=== PATIENT | male | born 1960 | race Caucasian/White ===

== ENCOUNTER 2020-03-10 12:36 | Day surgery (SDC) | payer BC ==
[2020-03-10] VITALS (8 sets, daily range): BP systolic 95–128; BP diastolic 56–82
[~2020-03-10] VITALS: Ht 172.7 cm; Wt 92.2 kg
[2020-03-10] MEDS ORDERED: LISI10TA4 PO (13:30)
[2020-03-10] MEDS ORDERED: SIMV-45 PO (13:30)
[2020-03-10] MEDS ORDERED: CLOP75TA34 PO (13:30)
[2020-03-10] MEDS ORDERED: CARV-50 PO (13:30)
[2020-03-10] MEDS ORDERED: METF-950 PO (13:30)
[2020-03-10] MEDS ORDERED: HYDR200T84 PO (13:30)
[2020-03-10] MEDS ORDERED: OMEG1CAP13 PO (13:32)
[2020-03-10 13:42] LABS: BASOPHILS # (AUTO) 0.1 X10'3 (0-0.2); EOSINOPHILS # (AUTO) 0.1 X10'3 (0-0.9); EOSINOPHILS % (AUTO) 1.3 % (0-6); HEMATOCRIT 45.6 % (42.0-52.0); HEMOGLOBIN 15.5 g/dl (14.0-17.9); LYMPHOCYTES # (AUTO) 1.7 X10'3 (1.1-4.8); MEAN CORPUSCULAR HEMOGLOBIN 30.7 PG (27.0-31.0); MEAN CORPUSCULAR VOLUME 90.1 FL (78-98); MONOCYTES # (AUTO) 0.5 X10'3 (0-0.9); MONOCYTES % (AUTO) 7.7 % (2-12); NEUTROPHILS # (AUTO) 4.3 X10'3 (1.8-7.7); PLATELET COUNT 181 X10'3 (140-440); RED BLOOD COUNT 5.05 X10'6 (4.70-6.10); RED CELL DISTRIBUTION WIDTH 12.9 % (11.5-14.5); WHITE BLOOD COUNT 6.7 X10'3 (4.5-11.0)
[2020-03-10 13:52] LABS: ALBUMIN 4.1 G/DL (3.4-5.0); ANION GAP 11 (8-16); BLOOD UREA NITROGEN 14 MG/DL (7-18); BUN/CREATININE RATIO 18.9 (5.4-32.0); CALCIUM 8.8 MG/DL (8.5-10.1); CHLORIDE 101 MMOL/L (99-107); CREATININE 0.74 MG/DL (0.60-1.10); GLUCOSE 190 MG/DL (70-104); MAGNESIUM 1.8 MG/DL (1.5-2.4); POTASSIUM 4.2 MMOL/L (3.5-5.1); SODIUM 137 MMOL/L (135-145); eGFR > 90 ML/MIN
[2020-03-10] MEDS ORDERED: VANCOMYCIN 1,500MG in NS 300 ML IVPB IV ONE (13:55)
[2020-03-10] MEDS ORDERED: ceFAZolin 2gm in dextrose, iso 50 ML IV ONE (13:55)
[2020-03-10] MEDS ORDERED: normal saline 1000ml 1,000 ML IV SCH (13:55)
[2020-03-10] MEDS ORDERED: ceFAZolin inj. 2,000 MG in normal saline soln 50 ML IV ONE (13:55)
[2020-03-10] MEDS ORDERED: proCHLORperazine 10 MG/2 ml inj ONE (14:30)
[2020-03-10] MEDS ORDERED: fentaNYL/PF 50MCG/1 ML 2ML syringe ONE (14:30)
[2020-03-10] MEDS ORDERED: midazolam 2 mg/2 ml injection ONE ×2 (14:30→14:54)
[2020-03-10] MEDS ORDERED: LIDOcaine 1% W/epiNEPHrine 1:100,000 20ml vial ONE (14:31)
[2020-03-10] MEDS ORDERED: ceFAZolin 1000mg inj ONE (14:50)
== END 2020-03-10 17:30 | disposition home or self-care (01) ==
LOC: SSTAY O 12:36
PROVIDERS: ATTEND Internal Medicine Cardiovascular Disease
DX: Z45.02 Encounter for adjustment and management of automatic implantable cardiac defibrillator (principal); I25.5 Ischemic cardiomyopathy; I42.0 Dilated cardiomyopathy; I25.10 Atherosclerotic heart disease of native coronary artery without angina pectoris; E78.00 Pure hypercholesterolemia, unspecified; E11.9 Type 2 diabetes mellitus without complications; I10 Essential (primary) hypertension; I08.1 Rheumatic disorders of both mitral and tricuspid valves; Z95.5 Presence of coronary angioplasty implant and graft; Z79.899 Other long term (current) drug therapy; Z98.890 Other specified postprocedural states; F17.290 Nicotine dependence, other tobacco product, uncomplicated; Z82.49 Family history of ischemic heart disease and other diseases of the circulatory system
CPT/HCPCS: 33263; 36415; 80048; 82948; 83735; 85025; 85610; 93005; 99152; 99153; C1721; J0690; J0780; J2250; J3010; J7030; A4620; A6258